=== PATIENT | male | born 1980 | race African-American/Black ===

== ENCOUNTER 2017-02-06 03:19 | Emergency (ER) | payer OTHER ==
[2017-02-09 23:42] LABS: CHLAMYDIA TRACH Not Detected (Not Detected); N GONOR Not Detected (Not Detected)
== END 2017-02-06 06:32 | disposition home or self-care (01) ==
LOC: CED 03:19
DX: N34.1 Nonspecific urethritis (principal); F17.200 Nicotine dependence, unspecified, uncomplicated
CPT/HCPCS: 87491; 87591; 96372; 99283; J0696